=== PATIENT | female | born 1980 | race Caucasian/White ===

== ENCOUNTER 2017-07-21 15:58 | Inpatient (IN) | payer MEDICAID, SELFPAY ==
[2017-07-21 16:30] VITALS: BMI 30.5
[2017-07-21] MEDS ORDERED: FLU VACC QS2017-18 36 mo. & older 0.5 ML SYRINGE IM ONE (16:45)
[2017-07-21 18:08] LABS: Amphetamine Not Detected (NotDetected); Barbiturates Screen Not Detected (NotDetected); Benzodiazepine Screen Not Detected (NotDetected); Cocaine Metabolite Screen Not Detected (NotDetected); Medtox Control Line Valid? VALID (VALID); Medtox Reader # READER 1; Methadone Not Detected (NotDetected); Methamphetamine Not Detected (NotDetected); Opiate Screen Not Detected (NotDetected); Oxycodone Screen Not Detected (NotDetected); Phencyclidine (PCP) Not Detected (NotDetected); THC/Cannabinoid Screen Not Detected (NotDetected); Tricyclic Screen Not Detected (NotDetected)
[2017-07-21] MEDS ORDERED: Ondansetron HCl/PF 4 MG/2 ML Vial IVP PRN (19:32)
[2017-07-21] MEDS ORDERED: Lactated Ringer's 1,000 ML IV SCH (19:45)
[2017-07-21 20:22] LABS: Hemoglobin 11.6 g/dL (12.0-16.0); Mean Corpuscular HGB CONC 34.8 g/dL (32.0-36.0); Mean Corpuscular Hemoglobin 33.2 pg (27.0-31.0); Mean Corpuscular Volume 95.4 fl (81.0-99.0); Platelet Count 251 thou/uL (130-400); RBC Distribution Width 11.3 % (11.5-14.5); Red Blood Cell (RBC) Count 3.49 mill/uL (4.20-5.40); White Blood Cell (WBC) Count 9.9 thou/uL (4.8-10.8)
[2017-07-21 20:41] LABS: Amnisure Test No Membranes Rupture (No Rupture)
[2017-07-21 20:42] LABS: Bilirubin Negative (Negative); Blood, Urine Negative (Negative); Glucose, Urine (Dipstick) Negative (Negative); Leukocyte Negative (Negative); Nitrite Negative (Negative); Protein, Urine (Dipstick) Negative (Neg-Trace); Urobilinogen 0.2 mg/dL (0.2-1.0)
[2017-07-21 20:42] LABS: Amnisure Internal Control QC ACCEPTABLE (ACCEPTABLE)
[2017-07-21 20:52] LABS: Clarity Clear (Clear)
[2017-07-21 20:53] LABS: Bacteria/HPF None Seen HPF (None Seen); Hyaline Casts/LPF 0-3 HYALINE CAST LPF (0-3 Hyaline); RBC/HPF 0-3 HPF (0-3); Squamous Epithelial 0-3 HPF (0-3); WBC/HPF 0-3 HPF (0-3)
[2017-07-21 21:23] LABS: Syphilis Antibody Nonreactive (Nonreactive); Syphilis Antibody Index 0.02 S/CO (<1.00 Non-Reactive)
[2017-07-21] MEDS ORDERED: Betamet Acet/Betamet Na Ph 30 MG/5 ML VIAL ONE (22:48)
[2017-07-21] MEDS ORDERED: NIFEdipine 10 MG CAP ONE (22:49)
--- NOTE | 2017-07-21 22:49 | ULT ---
OB ULTRASOUND 07/21/17 PROVIDED CLINICAL HISTORY: No care. FINDINGS: A single live intrauterine gestation is documented in cephalic presentation with heart rate of 144 be ats per minute documented. Estimated gestational age based on today's examination is 33 weeks, 1 day. Estimated weight is 1954 +/- 289 grams. Placenta is anterior in location without evidence for previa. Cervical length appears adequate. Amniotic fluid index is 25.1. anatomic survey demonstrates a normal appearance of the lateral ventricles, cerebellum, posteri or fossa, spine, stomach, kidneys, heart, three vessel umbilical cord and bladder. The nose and lips are not visualized. The cord insertion appears grossly normal. BIOMETRY: BPD 33 weeks, 6 days Head circumference 34 weeks, 3 days Abdominal circumference 32 weeks, 4 days Femur length 30 weeks, 5 days IMPRESSION: 1. Single live intrauterine gestation as described above, with estimated gestational age based o n the ultrasound examination of 33 weeks, 1 day. Discrepancy with clinical age may reflect incorrect dates or growth restriction. The latter would be supported by the elevated head circumference to abdo linda circumference ratio. 2. AMANDEEP 25.1. POS: [facility]
[2017-07-21] MEDS ORDERED: Lidocaine 1% (PF) 30 ML VIAL SC PRN (22:55)
[2017-07-21] MEDS ORDERED: LR / Pitocin 40 units/1000 ml 1,000 ML IV PRN (22:55)
[2017-07-21] MEDS ORDERED: NIFEdipine 10 MG CAP PO SCH (23:00)
[2017-07-21] MEDS: Betamet Acet/Betamet Na Ph 30 MG/5 ML VIAL IM SCH (23:21)
[2017-07-21 23:44] LABS: HBSAB Concentration 2.58 mIU/mL; Hep B Surf AB Non-Reactive (NonReactive)
--- NOTE | 2017-07-21 23:45 | ULT ---
UMBILICAL ARTERIAL DOPPLER 07/21/17 PROVIDED CLINICAL HISTORY: Possible intrauterine growth restriction. FINDINGS: Walsh scale and color doppler sonography with spectral analysis was performed of the umbilical artery. Near the placenta, a peak systolic velocity is 45.2 cm/s and end diastolic velocity is 23.3 cm/s. The SD ratio for the placental measurement is 1.94., the pulsatility index is 0.55 and the resistance in dex is 0.48. Near the cord insertion, the peak systolic velocity is 74.3 cm/s and the end diastolic velocities 22. 4 cm/s. For the cord insertion measurement, the SD ratio is 3.32, the pulsatility index is 1.22 and t he resistance index is 0.70. IMPRESSION: The SD ratio, pulsatility index and resistance index are near the upper limits of normal (near the 95 th percentile), suggesting the possibility of uteroplacental insufficiency. POS: [facility]
[2017-07-21] MEDS: Vancomycin HCl 1 GM in Premix Bag 1 BAG IVPB SCH (23:49)
[2017-07-22] MEDS: NIFEdipine 10 MG CAP PO SCH ×5 (00:20→23:58)
--- NOTE | 2017-07-22 03:36 | HP ---
DATE OF ENCOUNTER: 07/21/2017. No care. CHIEF COMPLAINT: Abdominal pains. HISTORY OF PRESENT ILLNESS: The patient is a 37-year-old G7, P4 female with an intrauterine pregnanc y stated to be 39 weeks and 3 days by a reported due date of 07/25/2017. Patient reports that she re cently moved from [place] where she was seeing Dr. Carrillo for her care; however, after looking into getting records and speaking to the provider associated with that practice, she has no r ecords with them. Patient further reported that she had only visited them once and had gotten an ult rasound there giving a due date of 08/11/2017 to 08/10/2017. She reports that her last period was in November, though she does not have regular periods. Patient presents with complaints of abdominal pains and is here for evaluation. She denies any vaginal bleeding. She reported that she was having a li ttle bit of leakage of fluid over the last 3 days where she was having to wear a pad and was not sure if it was due to leaking urine or breaking her bag. Patient denies headache, chest pain, shortness of breath, nausea. She reports some nausea and vomiting with the . Denies diarrhea or cons tipation, any new rash, hip problems, knee problems, muscle weakness, vaginal bleeding, urinary urgen cy or frequency. PAST MEDICAL HISTORY: Patient reports she has had stomach cancer in the past and took an oral chemot herapy, but has not followed up in 4 years. In further inquiring more about her due date and how it was established, patient reports she had an ultrasound done at [facility] where they have given her due date of 07/27/2017 from a previous reported due date of 08/11/2017; however, an attempt to ob tain this ultrasound report. There was no formal ultrasound performed but her dating had been estima cliff by a bedside ultrasound from ER physician. PAST SURGICAL HISTORY: Patient reports she has had tonsillectomy and appendectomy and gallbladder re moval. SOCIAL HISTORY: Patient reports she smokes about a half pack a day. Denies drug or alcohol use. Up on further discussing the details of her left eye. ALLERGIES: PENICILLIN and TRAMADOL. She states that she gets all swollen and hives when she takes P ENICILLIN. OB LABS: Unavailable. REVIEW OF SYSTEMS: Per HPI. PHYSICAL EXAMINATION: VITAL SIGNS: Blood pressure 138/63, heart rate of 97, respiratory rate 20, satting 98% on room air, temperature 97.9. Repeat blood pressure had been in the one teens over 60s. GENERAL: She appears to be in no acute distress. She is alert and oriented, and cooperative and ple asant to interact with. HEAD: Normocephalic, atraumatic. LUNGS: Clear to auscultation bilaterally. HEART: Regular rate and rhythm. ABDOMEN: Soft and nontender. Gravid. EXTREMITIES: Nontender, nonedematous. CERVICAL: On presentation was 2.5, 15 and -3 station. heart tracing performed for threatened labor. Baseline is noted to be in the 130s with moderat e long-term variability, positive accelerations, no decelerations. She is having contractions with a lot of irritability and contractions about every 3-4 minutes. LABORATORY DATA: White count of 9.9, hemoglobin 11.6, hematocrit 33.3, and platelets of 251,000. A spot glucose was 95. A urine was negative for nitrites, leukocyte esterase, white blood cells, bacte josé luis, M-swab test was negative for evidence of rupture of membranes. Urine drug screen was negative. Syphilis IgG, IgM was nonreactive, blood type is O positive, antibody screen is negative. ult rasound performed to confirm dating demonstrates a cooper with an estimated gestational age of 33 weeks and a day and estimated weight of 1954 grams. Placenta is anterior, no evidence of p revia and AMANDEEP is 25. Of note, there is a 3-week lag between the biparietal diameter and the femur le ngth. ASSESSMENT AND PLAN: Patient is a 37-year-old female with mczgot-fx-nihbnrsx care and a large discre pancy between what her stated due date is due to reported previous ultrasounds and the ultrasound per formed today. Given the incomplete records and history, it is unclear whether the patient truly has a child with a normal for gestational age size and is 33 weeks or is in fact IUGR and term. We have ordered umbilical artery Dopplers. We will attempt again tomorrow to reach the physician's office in [place] to attempt again to find an ultrasound that is reported to have been performed; theref ore comparison and dating. In the meantime, I will move from treating the patient as a term patient with expected management from which she has changed from 2-1/2 to 4 cm during her stay to one of pret erm labor. Patient will be tocolyzed with Procardia, placed on betamethasone and vancomycin for anti biotic, GBS prophylaxis. The NICU team has been notified and patient has been placed in full admissi on. Baby is in vertex presentation.
[2017-07-22] MEDS: Lactated Ringer's 1,000 ML IV SCH ×3 (10:08→23:57)
[2017-07-22 10:26] LABS: HBSAg Index 0.17 S/CO (0-0.99); Hep B Surf Ag Non-Reactive S/CO (NonReactive)
[2017-07-22] MEDS ORDERED: Famotidine/PF 20 mg/2ml Vial SLOW IVP SCH (11:00)
--- NOTE | 2017-07-22 11:02 | PDOC.EVN ---
Event Note - Event Note Event Note: S: pt c/o heart burn that precipitates N/V. She still c/o pressure in the pelvis but denies ctx. Overall she feels better than last PM when she came in O: AVSS NAD Resp unlabored OB. FHT Cat I this AM, toco quiet to irritable Laboratory Last Values WBC 9.9 thou/uL (4.8-10.8) 07/21/17 20:00 RBC 3.49 mill/uL (4.20-5.40) L 07/21/17 20:00 Hgb 11.6 g/dL (12.0-16.0) L 07/21/17 20:00 Hct 33.3 % (36.0-47.0) L 07/21/17 20:00 MCV 95.4 fl (81.0-99.0) 07/21/17 20:00 MCH 33.2 pg (27.0-31.0) H 07/21/17 20:00 MCHC 34.8 g/dL (32.0-36.0) 07/21/17 20:00 RDW 11.3 % (11.5-14.5) L 07/21/17 20:00 Plt Count 251 thou/uL (130-400) 07/21/17 20:00 MPV 7.0 fL (7.4-10.4) L 07/21/17 20:00 POC Glucose 95 mg/dL (70-110) 07/21/17 21:01 Urine Color Yellow (Yellow) 07/21/17: Urine Clarity Clear (Clear) 07/21/17 17: Urine pH 7.0 (5.0-9.0) 07/21/17 17: Ur Specific Sandy 1.020 (1.005-1.030) 07/21/17 17: Urine Protein Negative mg/dL (Neg-Trace) 07/21/17 17: Urine Glucose (UA) Negative mg/dL (Negative) 07/21/17 17: Urine Ketones Negative mg/dL (Negative) 07/21/17: Urine Blood Negative (Negative) 07/21/17 17: Urine Nitrite Negative (Negative) 07/21/17 17: Urine Bilirubin Negative (Negative) 07/21/17 17:29 Urine Urobilinogen 0.2 mg/dL (0.2-1.0) 07/21/17 17:29 Ur Leukocyte Esterase Negative (Negative) 07/21/17 17:29 Urine RBC 0-3 HPF (0-3) 07/21/17 17:29 Urine WBC 0-3 HPF (0-3) 07/21/17 17:29 Ur Squamous Epith Cells 0-3 HPF (0-3) 07/21/17 17:29 Urine Bacteria None Seen HPF (None Seen) 07/21/17 17:29 Hyaline Casts 0-3 HYALINE CAST LPF (0-3 Hyaline) 07/21/17 17:29 Amnio Swab Test No Membranes Rupture (No Rupture) 07/21/17 20:20 Urine Opiates Screen Not Detected (NotDetected) 07/21/17 17:29 Ur Oxycodone Screen Not Detected (NotDetected) 07/21/17 17:29 Urine Methadone Screen Not Detected (NotDetected) 07/21/17 17:29 Ur Propoxyphene Screen Not Detected (NotDetected) 07/21/17 17:29 Ur Barbiturates Screen Not Detected (NotDetected) 07/21/17 17:29 Ur Tricyclics Screen Not Detected (NotDetected) 07/21/17 17:29 Ur Phencyclidine Scrn Not Detected (NotDetected) 07/21/17 17:29 Ur Amphetamines Screen Not Detected (NotDetected) 07/21/17 17:29 U Methamphetamines Scrn Not Detected (NotDetected) 07/21/17 17:29 U Benzodiazepines Scrn Not Detected (NotDetected) 07/21/17 17:29 U Cocaine Metab Screen Not Detected (NotDetected) 07/21/17 17:29 U Cannabinoids Screen Not Detected (NotDetected) 07/21/17 17:29 Drug Screen Comment () 07/21/17 17:29 Syphilis IgG/IgM Ab Nonreactive (Nonreactive) 07/21/17 20:00 Hep Bs Antibody Non-Reactive (NonReactive) 07/21/17 20:00 Hep Bs Antibody Index 2.58 mIU/mL 07/21/17 20:00 Blood Type O POSITIVE 07/21/17 20:00 Antibody Screen NEGATIVE 07/21/17 20:00 A/P: 37 yo * unsure datin weeks by stated EDC, 32-33 weeks by irreg LMP and sono here last night * ctx/labor: Arrested at 4 cm. * Betamethasone s/p dose 1 of 2, and nifedipine tocolysis * possible asymetric IUGR, borderline dopplers. * Twice daily NST, twice weekly BPP, assess for interval growth in 3-4 weeks * AMA * tobacco use in * ltd care in [facility] + 1 ER visit with [facility] in [place]. Release of record form sent to [facility] clinic but Dr. Gonzalez spoke to clinic doctor and records not available. No Sono report from [facility] visit earlier this month. * Hep B SAg ordered * GBS culture pending, currently on Vancomycin (PCN Allergic with anaphylaxis)
[2017-07-22] MEDS: Vancomycin HCl 1 GM in Premix Bag 1 BAG IVPB SCH ×2 (12:01→23:57)
--- NOTE | 2017-07-22 13:12 | ULT ---
BIOPHYSICAL PROFILE UMBILICAL ARTERIAL DOPPLER: Date: 07/22/17 PROVIDED CLINICAL HISTORY: Growth restriction. FINDINGS: Tone: 2/2 Breathin/2 Movement: 2/2 Amniotic Fluid: 2/2 Total: 8 Color Doppler and spectral analysis was performed of the umbilical artery at the placenta, mid cord, and cord insertion. At the placenta, peak systolic velocity is 30.1 cm/sec and end-diastolic velocity is 12.5 cm/sec with a corresponding SD ratio of 2.41. At the mid cord, peak systolic velocity is 32.6 cm/sec and end-diastolic velocity is 10.3 cm/sec with a corresponding SD ratio of 3.17. At the cord insertion, peak systolic velocity is 44.8 cm/sec and end-diastolic velocity is 19.4 cm/se c with a corresponding SD ratio of 2.30. heart rate is 127 beats/minute. lie is variable. AMANDEEP is calculated as 25.7. IMPRESSION: 1. Normal biophysical profile. 2. SD ratio in the mid umbilical artery approaches the upper limits of normal. 3. Normal AMANDEEP. POS: [facility]
[2017-07-22] MEDS: Ondansetron HCl/PF 4 MG/2 ML Vial IVP PRN (13:49)
[2017-07-22] MEDS: Betamet Acet/Betamet Na Ph 30 MG/5 ML VIAL IM SCH (23:58)
[2017-07-23] MEDS: NIFEdipine 10 MG CAP PO SCH (06:43)
[2017-07-23] MEDS: Ondansetron HCl/PF 4 MG/2 ML Vial IVP PRN (09:10)
[2017-07-23] MEDS ORDERED: guaiFENesin/Dextromethorphan 10 ML UDCUP PO PRN (09:53)
[2017-07-23] MEDS ORDERED: Albuterol Sulfate 1.25 MG/3 ML NEB NEB SCH (10:00)
[2017-07-23] MEDS: Famotidine/PF 20 mg/2ml Vial SLOW IVP SCH (10:08)
[2017-07-23] MEDS: Lactated Ringer's 1,000 ML IV SCH ×2 (10:13→17:48)
--- NOTE | 2017-07-23 15:34 | PRG ---
DATE OF SERVICE: 07/23/2017 SUBJECTIVE: The patient now is hospital day #3, admitted with an intrauterine , estimated at 33 weeks by 33-week ultrasound in labor. There is some confusion on her established due date as they had on reported a due date of 07/27/2017. Given the patient's lack of care, we are unable to establish or confirm the reported dating and have treated this as a labor at 33 weeks. Her labor has been arrested at 4 cm dilation and is now status post steroid administration and will be 48 hours this evening, with polyhydramnios at 25 cm of water and otherwise has been reassuring. The patient reports today that she is without contractions. Tolerating p.o., and otherwise has no complaints. OBJECTIVE: VITAL SIGNS: Today, blood pressure 129/60, heart rate is 77, respiratory rate of 18 and temperature 98.8. GENERAL: She appears to be in no acute distress. She is alert and oriented, and cooperative and pleasant to interact with. The patient has reported that her mother has been unable to find the paperwork documenting her clinic visit from last February where she reports she had an ultrasound dating her to 08/11. The patient is currently without care outside the hospital and is uninsured. We will attempt to get her set up with the Clinic and once discharged from the home will need weekly visits with weekly BPPs until we can confirm that the baby is not growth restricted. heart tracing: This morning's NST shows a baseline in the 130s with moderate long-term variability, positive accelerations, no decelerations, no contractions. ASSESSMENT AND PLAN: The patient is a 37-year-old G7, P4 female with an intrauterine , estimated at 33 weeks and 5 days based 33-week ultrasound. The patient is status post steroids is now antibiotics and cervical tocolytics have been discontinued today. We have put a consultation for case management to assist and establishing eligibility for Medicaid and will attempt to get her set up to be seen at the Clinic. PEPE
[2017-07-23] MEDS: Guaifenesin DM 100-10/5 ML UDCUP PO PRN (17:48)
[2017-07-24] MEDS: Guaifenesin DM 100-10/5 ML UDCUP PO PRN (09:24)
--- NOTE | 2017-07-24 10:12 | PDOC.LDPN ---
Labor & Delivery Progress Note - Objective Vital signs reviewed and normal: yes General: NAD FHT: category 2 - Assessment (1) Third trimester fetus Code(s): Z34.93 - ENCNTR FOR SUPRVSN OF NORMAL PREG, UNSP, THIRD TRIMESTER Current Visit: Yes Status: Acute Plan: continue plan of care (Patient is here with poor gestational criteria. Possibly 39 weeks by dates but no record of dating. Here, EGA 33 weeks (IUGR?). She is a with some limited outside PNC. NST this am has no deceks but min variability. I have requested a BPP to gather more information.)
[2017-07-24] MEDS: Lactated Ringer's 1,000 ML IV SCH (10:30)
[2017-07-24] MEDS: Famotidine/PF 20 mg/2ml Vial SLOW IVP SCH (10:31)
--- NOTE | 2017-07-24 10:38 | PDOC.EVN ---
Event Note - Event Note Event Note: BPP now 02/01, cephalic. Patient desires discharged home. We are unable to get any other information from [place] where she states she had care. As no immediate need for delivery, we may discahrge home this afternoon.
--- NOTE | 2017-07-24 11:07 | PDOC.EVN ---
Event Note - Event Note Event Note: DISCHARGE NOTE: Summary: Patient was admitted 07/21/2017 as a with unsure gestational dating. She is a at 33 weeks by ultrasound this admission, but 39 weeks by her dates. BPP done this AM (07/24) was 8/8 (8/10 for NST). No decels on NST. She has outpatient follow up this week with the [facility]. As there is no acute need for intervention at this time, with unsure dates, we will plan to repeat a sono in 2-3 weeks as an outpatient. Admit: 07/21/17 Discharge: 07/24/17 Diagnosis: Third rimester Poor gestational criteria Reassuring antepartum surveillance
--- NOTE | 2017-07-24 11:27 | ULT ---
ULTRASOUND BIOPHYSICAL PROFILE: Date: 07/24/17 HISTORY: Follow-up biophysical profile. Intrauterine growth retardation. No care. COMPARISON: Biophysical profile dated 07/22/17. FINDINGS: heart rate documented at 155 beats/minute. Amniotic fluid index of 22 cm. The biophysical profile score is 8/8. IMPRESSION: 1. Biophysical profile score of 8/8. 2. Mild elevated amniotic fluid index of nearly 23 cm. POS: [facility]
[2017-07-24 11:37] VITALS: BP 124/67; TEMP 98.3
== END 2017-07-24 11:50 | disposition home health service (06) | DRG 778 ==
LOC: L&D/OP 15:58 → L&D 22:56
PROVIDERS: ADMIT Obstetrics & Gynecology; ATTEND Obstetrics & Gynecology
DX: O60.03 Preterm labor without delivery, third trimester (principal); F17.210 Nicotine dependence, cigarettes, uncomplicated; Z3A.33 33 weeks gestation of pregnancy; O99.333 Smoking (tobacco) complicating pregnancy, third trimester; O09.33 Supervision of pregnancy with insufficient antenatal care, third trimester; O40.3XX0 Polyhydramnios, third trimester, not applicable or unspecified; O09.523 Supervision of elderly multigravida, third trimester
CPT/HCPCS: 36415; 36416; 76805; 76815; 76819; 80306; 81001; 82950; 84112; 85027; 86706; 86762; 86780; 86850; 86900; 86901; 87081; 87340; 93976; 94640; 96365; 96366; 99285; J0702; J2001; J2405; J3370; S0028

== ENCOUNTER 2017-07-25 20:52 | Inpatient (IN) | payer MEDICAID, SELFPAY ==
[2017-07-25 21:34] VITALS: BMI 30.5
[2017-07-25] MEDS ORDERED: Diphenoxylate HCl/Atropine Tablet PO PRN (21:34)
[2017-07-25] MEDS ORDERED: Lactated Ringer's 1,000 ML IV SCH ×2 (21:34)
[2017-07-25] MEDS ORDERED: Lidocaine 1% (PF) 30 ML VIAL SC PRN (21:34)
[2017-07-25] MEDS ORDERED: LR / Pitocin 40 units/1000 ml 1,000 ML IV PRN (21:34)
[2017-07-25] MEDS ORDERED: Ibuprofen 800 MG TAB PO PRN (21:34)
[2017-07-25] MEDS ORDERED: Promethazine HCl 25 MG/ML VIAL IM PRN (21:34)
[2017-07-25] MEDS ORDERED: Ondansetron HCl/PF 4 MG/2 ML Vial IVP PRN (21:34)
[2017-07-25] MEDS ORDERED: Carboprost 250 MCG/ML AMP IM PRN (21:34)
[2017-07-25] MEDS ORDERED: Lidocaine 1% (PF) 30 ML VIAL ONE (21:38)
[2017-07-25] MEDS ORDERED: LR / Pitocin 40 units/1000 ml 1,000 ML ONE (21:38)
[2017-07-25] MEDS ORDERED: Oxytocin 10 UNITS/ML VIAL ONE (21:39)
[2017-07-25 22:22] LABS: Mean Corpuscular HGB CONC 34.3 g/dL (32.0-36.0); Mean Corpuscular Hemoglobin 32.8 pg (27.0-31.0); Mean Corpuscular Volume 95.8 fl (81.0-99.0); Mean Platelet Volume 6.8 fL (7.4-10.4); Platelet Count 287 thou/uL (130-400); RBC Distribution Width 11.6 % (11.5-14.5); Red Blood Cell (RBC) Count 3.65 mill/uL (4.20-5.40); White Blood Cell (WBC) Count 16.1 thou/uL (4.8-10.8)
[2017-07-25] MEDS ORDERED: Preparation H Ointment 28 GM TUBE PR PRN (22:36)
[2017-07-25] MEDS ORDERED: Lanolin Ointment 7 GM TUBE TOP PRN (22:36)
[2017-07-25] MEDS ORDERED: Zolpidem Tartrate 5 MG TAB PO PRN (22:36)
[2017-07-25] MEDS ORDERED: diphenhydrAMINE 25 MG CAP PO PRN (22:36)
[2017-07-25] MEDS ORDERED: Adacel (T-DAP) 0.5 ML VIAL IM ONE (22:36)
[2017-07-25] MEDS ORDERED: Benzocaine/Menthol 20-0.5% 60 ML CAN TOP PRN (22:36)
[2017-07-25] MEDS ORDERED: Bisacodyl 10 MG SUPP PR PRN (22:36)
[2017-07-25] MEDS ORDERED: Milk Of Magnesia 30 ML UDCUP PO PRN (22:36)
[2017-07-25] MEDS ORDERED: LR / Pitocin 40 units/1000 ml 1,000 ML IV SCH (22:45)
[2017-07-25] MEDS: Ibuprofen 800 MG TAB PO SCH (22:57)
--- NOTE | 2017-07-25 23:41 | HP ---
DATE OF ADMISSION: 07/25/2017 TIME OF ADMISSION: 2114 PRESENTING COMPLAINT: Contractions, active labor approximately 33-34 weeks' gestation. HISTORY OF PRESENT ILLNESS: Ms. Villagran is a 37-year-old 8, para 4, AB 3 at approximately 33-3 4 weeks gestation by poor criteria, who was admitted last week with contractions and cervical change. She received antepartum betamethasone and was discharged home yesterday after no cervical c hange. She reports onset of contractions this evening. Denies rupture of membranes, reports an acti ve fetus. OB AND RETORT KILN BURNER HISTORY: SABs and SVDs, hepatitis B negative, RPR negative, rubella nonimmune, group B st rep negative on culture on the , O positive, HIV not done. No 50 gram, no genetic testing. PAST MEDICAL HISTORY: Patient has a nebulous past medical history of a possible stomach cancer that was treated with oral therapy. It sounds like this is most likely H. pylori infection. PAST SURGICAL HISTORY: Tonsillectomy, cholecystectomy, and appendectomy. SOCIAL HISTORY: One pack per day. Denies alcohol or drug abuse. UDS negative on previous admission . ALLERGIES: PENICILLIN and TRAMADOL. The patient reports she has hives with PENICILLIN. MEDICATIONS: None. FAMILY HISTORY/REVIEW OF SYSTEMS: Noncontributory. PHYSICAL EXAMINATION: GENERAL: White female in moderate distress. VITAL SIGNS: Blood pressure 135/85, heart rate 97, temperature 96, pulse 85. HEENT: Within normal limits. LUNGS: Clear to auscultation bilaterally. HEART: Regular rhythm. ABDOMEN: Soft, nontender with palpable contractions. Fundal height is 33 cm. FHTs are 130s to 140 s. PELVIC: Vulva without lesions. Vagina, slight discharge. Cervix, the patient has a bulging bag, ce phalic presentation, 8 complete, -1 station. EXTREMITIES: Without clubbing, cyanosis, or edema. heart rate tracing reveals a baseline of 1 30s to 140s with early and variable decelerations, no evidence of late decelerations, category 2 feta l heart rate tracing. IMPRESSION: labor at approximately at 33-34 weeks gestation with poor antepartum care that w as insufficient in nature, tobacco abuse in , grand multiparity elderly grand multiparous pa tient in active labor. PLAN: Admission, vancomycin for group B strep prophylaxis, neonatology consult, anticipate spontaneo us vaginal delivery.
[2017-07-26] MEDS ORDERED: Ketorolac Tromethamine 30 MG/ML VIAL IVP SCH (01:00)
[2017-07-26] MEDS: Ondansetron HCl/PF 4 MG/2 ML Vial IVP PRN ×2 (01:41→10:21)
[2017-07-26 02:12] LABS: HIV (1/2) Antibody/Antigen Non-Reactive (NonReactive); HIV 1/2 INDEX 0.08 S/CO (<1.00)
[2017-07-26] MEDS: Ibuprofen 800 MG TAB PO SCH ×3 (05:32→18:05)
--- NOTE | 2017-07-26 06:09 | OP ---
DATE OF SERVICE: 07/25/2017 TIME OF DICTATION: 2230 hours. I was called to the room to present for spontaneous vaginal delivery as the patient felt the need to push at approximately 2208 hours, I presented and the patient's perineum was prepped and draped in the usual manner, approximately 2214 hours with bulging membrane. Immediately upon amniotomy, copious yellow foul smelling amniotic fluid was noted. With one push, the patient got the fetus to the perineum and delivered over an intact perineum at 2216 hours. The cord was immediately clamped and cut and the was handed off to Dr. Cannon and the Neonatology team for care and resuscitation. Please see the resuscitation record. Weight and Apgars are pending. Cord blood sample was obtained. The placenta was delivered and cultured both maternal and side with the same swab. It was sent for pathologic analysis. The uterus was firm. No lacerations were noted. Estimated blood loss was 250 and counts were correct. The patient was to be entered into routine care. PEPE
--- NOTE | 2017-07-26 07:41 | PDOC.PP ---
Post Progress Note Post Day #: 1 PO intake tolerated: yes Flatus: yes Ambulation: yes Vital Signs (12 hours) Temp Pulse Resp BP 07/26/17 04:00 97.7 F 65 16 115/60 07/26/17 01:40 76 20 130/86 07/26/17 00:40 98.6 F 69 16 119/64 07/25/17 23:09 98.4 F 81 18 141/69 H 07/25/17 21:46 98.3 F 96 22 H 132/76 07/25/17 21:31 98.0 F 96 18 132/76 Weight Weight 195 lb - Physical Examination General: NAD Cardiovascular: no m/r/g, RRR Respiratory: clear to auscultation bilaterally Abdominal: + bowel sounds, lochia Extremities: negative homans (B) Neurological: no gross focal deficits Psychiatric: A&Ox3, normal affect Result Diagrams: 07/25/17 22:12 (1) Chorioamnionitis in third trimester Code(s): O41.1230 - CHORIOAMNIONITIS, THIRD TRIMESTER, NOT APPLICABLE OR UNSP Status: Resolved Qualifiers: Fetus number: single or unspecified fetus Qualified Code(s): O41.1230 - Chorioamnionitis, third trimester, not applicable or unspecified - Assessment/Plan doing well. placenta cx pending. baby in nicu. anticipate dc at 48-72 hr post if no sign of endometritis
[2017-07-26] MEDS: Docusate Calcium (SURFAK) 240 MG CAP PO SCH ×2 (08:37→22:57)
[2017-07-26] MEDS: Prenatal Vitamin 1 TAB PO SCH (08:37)
[2017-07-26] MEDS: Ferrous Sulfate 325 MG TAB PO SCH ×2 (08:39→17:57)
[2017-07-26] MEDS ORDERED: Vancomycin HCl 1 GM in Premix Bag 1 BAG IVPB SCH (09:00)
[2017-07-26] MEDS ORDERED: Prenatal Vitamin 1 TAB PO SCH (09:00)
[2017-07-26] MEDS ORDERED: Cyclobenzaprine 10 MG TAB PO SCH (11:00)
[2017-07-26 11:10] LABS: Bilirubin Negative (Negative); Blood, Urine Large (Negative); Clarity Cloudy (Clear); Glucose, Urine (Dipstick) Negative (Negative); Leukocyte Moderate (Negative); Nitrite Negative (Negative); Protein, Urine (Dipstick) 30 mg/dL (Neg-Trace)
[2017-07-26 11:18] LABS: RBC/HPF GREATER THAN 50-TNTC HPF (0-3)
[2017-07-26 11:19] LABS: Bacteria/HPF None Seen HPF (None Seen); Hyaline Casts/LPF NONE SEEN LPF (0-3 Hyaline); WBC/HPF 21-50 HPF (0-3)
[2017-07-27] MEDS: Ibuprofen 800 MG TAB PO SCH (01:02)
[2017-07-27 08:45] VITALS: BP 111/74; TEMP 97.9
[2017-07-27] MEDS: Docusate Calcium (SURFAK) 240 MG CAP PO SCH (11:41)
[2017-07-27] MEDS: Ferrous Sulfate 325 MG TAB PO SCH (11:42)
[2017-07-27] MEDS: Prenatal Vitamin 1 TAB PO SCH (11:42)
--- NOTE | 2017-07-27 13:08 | DIS ---
DATE OF ENCOUNTER: 07/27/2017 ADMITTING DIAGNOSIS: labor at 33-34 weeks. DISCHARGE DIAGNOSIS: Chorioamnionitis. CONSULTATIONS: Neonatology. PROCEDURE: spontaneous vaginal delivery. HOSPITAL COURSE: Ms. Jennifer Villagran is a 37-year-old multiparous female who presented in labo r at approximately 34 weeks and subsequently delivered spontaneously a female with a diagnosis of chorioamnionitis based on the foul smelling nature of amniotic fluid. Mother had just been admit cliff a few days prior for labor and had been given steroids and antibiotic treatment over a co uple days and after patient showed arrest for more than 24 hours, the patient had been discharged nica . Once she delivered she was transferred to for routine care and was started on Levaquin for concerns of risk of endometritis as well as a urinary tract infection. The patient is now postp artum day #2. She has remained afebrile throughout her stay. Today she is tolerating p.o. well, amb ulating, reporting scanty lochia and having excellent pain control. The patient has expressed a deep appreciation for the care for her and her baby at this hospital. The patient had arrangements made for her to stay at [facility] for some period of time while the baby is in the NICU. The patient is being discharged to the [facility] on ibuprofen p.r.n. for pain. She is intere sted in discussing with a provider sterilization. I have counseled her that she will need to follow up in the period with someone that can assist her as soon as possible. Patient has expres sed understanding. She has been given instructions to seek medical attention should she experience i ncreasing pain, fever or bleeding. The patient will be given 1 more dose of Levaquin just prior to d ischarge.
== END 2017-07-27 14:25 | disposition home or self-care (01) | DRG 775 ==
LOC: L&D/OP 20:52 → L&D 21:33 → 3SW 07-26 00:29
PROVIDERS: ADMIT Obstetrics & Gynecology; ATTEND Obstetrics & Gynecology
PROC: 10E0XZZ Delivery of Products of Conception, External Approach (ICD-10-PCS; principal; 2017-07-25)
PROC: 10907ZC Drainage of Amniotic Fluid, Therapeutic from Products of Conception, Via Natural or Artificial Opening (ICD-10-PCS; 2017-07-25)
DX: O60.14X0 Preterm labor third trimester with preterm delivery third trimester, not applicable or unspecified (principal); O41.1230 Chorioamnionitis, third trimester, not applicable or unspecified; F17.210 Nicotine dependence, cigarettes, uncomplicated; O99.334 Smoking (tobacco) complicating childbirth; Z37.0 Single live birth; Z23 Encounter for immunization; Z3A.34 34 weeks gestation of pregnancy
CPT/HCPCS: 36415; 76815; 81001; 85027; 87070; 87077; 87086; 87205; 87389; 88307; 90715; 99285; J1885; J1956; J2001; J2405; J2590; J3370; J3490

== ENCOUNTER 2019-07-27 10:43 | Inpatient (IN) | payer MEDICAID, OTHER ==
[2019-07-27] MEDS ORDERED: Ondansetron PF 4 MG/2 ML Vial IVP PRN ×2 (10:57→14:06)
[2019-07-27] MEDS ORDERED: NS / Oxytocin 40 units/1000ml 1,000 ML IV PRN (10:57)
[2019-07-27] MEDS ORDERED: Lidocaine 1% (PF) 30 ML VIAL SC PRN (10:57)
[2019-07-27] MEDS ORDERED: hydrALAZINE 20 MG/ML VIAL SLOW IVP PRN ×2 (10:57→14:06)
[2019-07-27] MEDS ORDERED: Promethazine HCl 25 MG/ML VIAL IM PRN (10:57)
[2019-07-27] MEDS ORDERED: CEFAZOLIN 1 GM in Sodium Chloride 0.9% 100 ML IVPB SCH (11:00)
[2019-07-27 11:20] VITALS: BMI 29.7
[2019-07-27] MEDS ORDERED: Butorphanol Tartrate 1 MG/ML VIAL ONE (11:27)
[2019-07-27 11:51] LABS: Hemoglobin 11.5 g/dL (12.0-16.0); Mean Corpuscular HGB CONC 32.8 g/dL (32.0-36.0); Mean Corpuscular Hemoglobin 28.4 pg (27.0-31.0); Mean Corpuscular Volume 86.6 fL (78.0-98.0); Mean Platelet Volume 8.4 fL (7.4-10.4); Platelet Count 299 thou/uL (130-400); RBC Distribution Width 12.6 % (11.5-14.5); Red Blood Cell (RBC) Count 4.03 mill/uL (4.20-5.40); White Blood Cell (WBC) Count 14.6 thou/uL (4.8-10.8)
[2019-07-27 12:21] LABS: ALT (SGPT) 13 U/L (8-55); AST (SGOT) 16 U/L (5-34); Albumin 3.3 g/dL (3.5-5.0); Alkaline Phosphatase 233 U/L (40-110); Anion Gap 12 mmol/L (10-20); BUN (Urea Nitrogen) 9 mg/dL (7.0-18.7); Bilirubin, Total 0.4 mg/dL (0.2-1.2); Calc. Creatinine Clearance 143 mL/min (70-130); Carbon Dioxide 23 mmol/L (22-29); Chloride 105 mmol/L (98-107); Estimated GFR-MDRD 90; Glucose 86 mg/dL (70-105); Potassium 4.6 mmol/L (3.5-5.1); Protein, Total 6.3 g/dL (6.0-8.3); Sodium 135 mmol/L (136-145)
[2019-07-27 12:23] LABS: Syphilis Antibody Nonreactive (Nonreactive); Syphilis Antibody Index 0.02 S/CO (<1.00 Non-Reactive)
[2019-07-27] MEDS ORDERED: Methylergonovine 0.2 MG/ML VIAL ONE (12:24)
[2019-07-27] MEDS ORDERED: Carboprost 250 MCG/ML AMP ONE (12:24)
[2019-07-27 13:04] LABS: HBSAB Concentration 645.43 mIU/mL; Hep B Surf AB Reactive (NonReactive)
--- NOTE | 2019-07-27 13:12 | PDOC.OPDEL ---
OB Operative/Delivery Note Delivery Dr/Surgeon: Mark Santiago Assist: Attending: Dr. Johansen Pre-Delivery Diagnosis: active labor Procedure/Post Delivery Dx: spontaneous vaginal delivery Weeks gestation: 39 Anesthesia: none - Findings A Sex: female - 1 min: 9 - 5 min: 9 - Additional Findings/Plan Placenta delivered: spontaneous Repaired Obstetrical Laceration: none Compilations/Other Findings: Delivering Physician : Mark Santiago Attending: Eleno Procedure: Spontaneous Vaginal Delivery Anesthesia: none Pre-op Diagnosis: 1. Term intrauterine in labor 2. Hx of GBS + 3. No care 4. Hx of drug use 5. AMA Post-op Diagnosis: 1. Term intrauterine , delivered 2. 2. Hx of GBS + 3. No care 4. Hx of drug use 5. AMA Indications: A 39 y/o female presents in active labor. Delivery Note: This is 39yo F @39ks who delivered a viable F infant at ~ 1240 on 07/27/2019. Following an uneventful antepartum course, a vigorous female was delivered over an intact perineum in the occipitoanterior position. Anterior shoulder and then remainder of the body delivered. No nuchal cord. The head was held down and mouth and nares were bulb suctioned. Cord clamped and cut and cord blood collected. Placenta delivered intact (in the Estevez presentation) with a 3 vessel cord noted. Fundal massage was performed and the fundus was firm. The cervix and vagina were inspected and found to be free of lacerations. went to nursery in good condition for routine care. Apgars were 9/9 at 1 & 5 minutes, respectively. Patient tolerated delivery well and went to after routine recovery/care. Addendum - Attending - Attending Attestation Date/Time: 08/01/19 1937 I personally evaluated the patient and discussed the management with Dr. Flores. Uncomplicated as detailed above. I agree with the History, Examination, Assessment and Plan documented above.
[2019-07-27] MEDS ORDERED: Adacel (T-DAP) 0.5 ML SYRINGE IM ONE (14:06)
[2019-07-27] MEDS ORDERED: Preparation H Ointment 28 GM TUBE PR PRN (14:06)
[2019-07-27] MEDS: Misoprostol 200 MCG TAB ONE (14:06)
[2019-07-27] MEDS ORDERED: Lanolin Ointment 7 GM TUBE TOP PRN (14:06)
[2019-07-27] MEDS ORDERED: diphenhydrAMINE 25 MG CAP PO PRN (14:06)
[2019-07-27] MEDS ORDERED: Benzocaine-Menthol 82.5 ML CAN TOP PRN (14:06)
[2019-07-27] MEDS ORDERED: Bisacodyl 10 MG SUPP PR PRN (14:06)
[2019-07-27] MEDS ORDERED: NS / Oxytocin 40 units/1000ml 1,000 ML IV SCH (14:06)
[2019-07-27] MEDS ORDERED: Milk Of Magnesia 30 ML UDCUP PO PRN (14:06)
[2019-07-27] MEDS: Ibuprofen 800 MG TAB PO SCH ×2 (14:09→21:47)
[2019-07-27 14:46] LABS: Bacteria/HPF None Seen HPF (None Seen); Bilirubin Negative (Negative); Blood, Urine Negative (Negative); Clarity Clear (Clear); Glucose, Urine (Dipstick) Normal (Negative); Leukocyte Negative Leu/uL (Negative); Nitrite Negative (Negative); Protein, Urine (Dipstick) 10 mg/dL (Neg-Trace); RBC/HPF 0-3 HPF (0-3); Squamous Epithelial 0-3 HPF (0-3); Urobilinogen Normal mg/dL (Less than 2); WBC/HPF 0-3 HPF (0-3)
[2019-07-27 14:59] LABS: Amphetamine Detected (NotDetected); Barbiturates Screen Not Detected (NotDetected); Benzodiazepine Screen Not Detected (NotDetected); Cocaine Metabolite Screen Not Detected (NotDetected); Medtox Control Line Valid? VALID (VALID); Medtox Reader # READER 4; Methadone Not Detected (NotDetected); Methamphetamine Detected (NotDetected); Opiate Screen Not Detected (NotDetected); Oxycodone Screen Not Detected (NotDetected); Phencyclidine (PCP) Not Detected (NotDetected); THC/Cannabinoid Screen Detected (NotDetected); Tricyclic Screen Not Detected (NotDetected)
[2019-07-27] MEDS ORDERED: Acetaminophen/Codeine 30-300mg Tablet PO PRN (15:27)
[2019-07-27 16:14] LABS: HBSAg Index 0.43 S/CO (0-0.99); Hep B Surf Ag Non-Reactive S/CO (NonReactive)
[2019-07-27] MEDS: Ferrous Sulfate 325 MG TAB PO SCH (17:46)
[2019-07-27] MEDS: Docusate Calcium (SURFAK) 240 MG CAP PO SCH (21:47)
--- NOTE | 2019-07-28 01:03 | PDOC.PP ---
Post Progress Note Post Day #: PPD1 Subjective: Resting, no complaints. PO intake tolerated: yes Flatus: yes Ambulation: yes Vital Signs (12 hours) Temp Pulse Resp BP Pulse Ox 07/27/19 19:24 99.0 F 93 16 142/84 H 98 07/27/19 17:11 98.0 F 87 12 151/83 H 98 07/27/19 16:23 96 07/27/19 16:20 98.5 F 87 22 H 142/87 H 07/27/19 15:10 98.5 F 90 18 157/86 H Weight Weight 86.183 kg - Physical Examination General: NAD Respiratory: non-labored breathing Neurological: no gross focal deficits Psychiatric: normal affect Result Diagrams: 07/27/19 11:35 07/27/19 11:35 Additional Labs: Post Labs Blood Type O POSITIVE 07/27/19 11:35 Hep Bs Antigen Non-Reactive S/CO (NonReactive) 07/27/19 11:35 - Assessment/Plan Doing well s/p Case management consult pending for +UDS Routine PP care
[2019-07-28] MEDS: Ibuprofen 800 MG TAB PO SCH ×3 (05:50→21:14)
[2019-07-28 06:11] LABS: Hemoglobin 10.1 g/dL (12.0-16.0); Mean Corpuscular HGB CONC 33.6 g/dL (32.0-36.0); Mean Corpuscular Hemoglobin 29.3 pg (27.0-31.0); Mean Platelet Volume 8.2 fL (7.4-10.4); Platelet Count 269 thou/uL (130-400); RBC Distribution Width 12.6 % (11.5-14.5); Red Blood Cell (RBC) Count 3.43 mill/uL (4.20-5.40); White Blood Cell (WBC) Count 10.2 thou/uL (4.8-10.8)
[2019-07-28] MEDS: Ferrous Sulfate 325 MG TAB PO SCH ×2 (07:27→17:36)
--- NOTE | 2019-07-28 07:28 | PDOC.PP ---
Post Progress Note Post Day #: 1 Subjective: Doing well. Elevated bps during labor yesterday and overnight. Denies headaches , vision changes, swelling. PO intake tolerated: yes Flatus: yes Ambulation: yes Weight Weight 86.183 kg - Physical Examination General: NAD Cardiovascular: no m/r/g, RRR Respiratory: clear to auscultation bilaterally, non-labored breathing Neurological: no gross focal deficits Psychiatric: A&Ox3 Result Diagrams: 07/28/19 05:31 07/27/19 11:35 Additional Labs: Post Labs Blood Type O POSITIVE 07/27/19 11:35 Hep Bs Antigen Non-Reactive S/CO (NonReactive) 07/27/19 11:35 (1) Term delivered Code(s): O80 - ENCOUNTER FOR FULL-TERM UNCOMPLICATED DELIVERY Status: Acute (2) Methamphetamine abuse Code(s): F15.10 - OTHER STIMULANT ABUSE, UNCOMPLICATED Status: Acute (3) Amphetamine abuse Code(s): F15.10 - OTHER STIMULANT ABUSE, UNCOMPLICATED Status: Acute (4) Hx maternal GBS (group B streptococcus) affected , Code(s): O09.299 - SUPRVSN OF PREG W POOR REPRODCTV OR OBSTET HISTORY, UNSP TRI Status: Acute (5) Advanced maternal age (AMA) in Code(s): [id number] - Status: Acute (6) Elevated blood pressure affecting in third trimester, antepartum Code(s): O16.3 - UNSPECIFIED MATERNAL HYPERTENSION, THIRD TRIMESTER Status: Acute (7) No care in current Code(s): O09.30 - SUPRVSN OF PREG W INSUFFICIENT ANTENAT CARE, UNSP TRIMESTER Status: Acute (8) Continuous tobacco abuse Code(s): Z72.0 - TOBACCO USE Status: Acute - Assessment/Plan 39 yo s/p @ 39wks to a LAY f at 1240 on 07/27/19, with elevated bp during delivery and , meth/amphet abuse, no prenantal care, hx of GBS meningitis in a different child, advanced maternal age, and tobacco abuse. #sIUP, term, delivered -continue routine care #Elevated BP without diagnosis of HTN -multiple during labor and overnight after delivery -added on a urine protein/cr ratio from sample taken yesterday which showed ratio of .3 -no severe features on initial labs yesterday -however if severe range blood pressures present during , I would consider magnesium for seizure prophylaxis. #AMA #multi-drug use in -likely contributing to elevated BP #tobacco abuse #no care #hx of GBS pos with prior infant with GBS meningitis Latrice Santiago MD, PGY-3 Addendum - Attending - Attending Attestation Date/Time: 08/01/19 0906 I personally evaluated the patient and discussed the management with Dr. Flores I agree with the History, Examination, Assessment and Plan documented above.
[2019-07-28] MEDS ORDERED: FLU VACC QS2019-20(6MOS UP)/PF 60 MCG/0.5 ML SYRINGE IM ONE (09:00)
[2019-07-28] MEDS: Prenatal Vitamin 1 TAB PO SCH (10:11)
[2019-07-28] MEDS: Docusate Calcium (SURFAK) 240 MG CAP PO SCH ×2 (10:11→21:14)
[2019-07-28 11:36] LABS: Creatinine, Urine 49.76 mg/dL (47-110)
--- NOTE | 2019-07-29 03:14 | PDOC.PP ---
Post Progress Note Post Day #: 2 Subjective: Patient doing well. States her headaches have resolved. States CPS came and talked to her and her regarding placement of child. She is under the impression that infant will go home with FOB today. Lochia very minimal. PO intake tolerated: yes Flatus: yes Ambulation: yes Vital Signs (12 hours) Temp Pulse Resp BP Pulse Ox 07/28/19 17:22 98 24 H 139/82 98 07/28/19 16:30 98.7 F 99 20 153/82 H Weight Weight 86.183 kg - Physical Examination General: NAD Cardiovascular: RRR Respiratory: non-labored breathing Abdominal: + bowel sounds, lochia (minimal), no distention, appropriately TTP Fundus firm & at: below umbilicus Skin: no rash Neurological: no gross focal deficits Psychiatric: A&Ox3, normal affect Result Diagrams: 07/28/19 05:31 07/27/19 11:35 Additional Labs: Post Labs Blood Type O POSITIVE 07/27/19 11:35 Hep Bs Antigen Non-Reactive S/CO (NonReactive) 07/27/19 11:35 Rubella IgG Antibody Less than 0.90 index (Immune >0.99) L 07/27/19 11:35 (1) Advanced maternal age (AMA) in Code(s): [id number] - Status: Acute (2) Amphetamine abuse Code(s): F15.10 - OTHER STIMULANT ABUSE, UNCOMPLICATED Status: Acute (3) Elevated blood pressure affecting in third trimester, antepartum Code(s): O16.3 - UNSPECIFIED MATERNAL HYPERTENSION, THIRD TRIMESTER Status: Acute (4) Hx maternal GBS (group B streptococcus) affected , Code(s): O09.299 - SUPRVSN OF PREG W POOR REPRODCTV OR OBSTET HISTORY, UNSP TRI Status: Acute (5) Methamphetamine abuse Code(s): F15.10 - OTHER STIMULANT ABUSE, UNCOMPLICATED Status: Acute (6) No care in current Code(s): O09.30 - SUPRVSN OF PREG W INSUFFICIENT ANTENAT CARE, UNSP TRIMESTER Status: Acute (7) Term delivered Code(s): O80 - ENCOUNTER FOR FULL-TERM UNCOMPLICATED DELIVERY Status: Acute (8) Continuous tobacco abuse Code(s): Z72.0 - TOBACCO USE Status: Acute - Assessment/Plan 39 yo s/p @ 39wks to a LAY f at 1240 on 07/27/19, with elevated bp during delivery and , meth/amphet abuse, no prenantal care, hx of GBS meningitis in a different child, advanced maternal age, and tobacco abuse. sIUP, term, delivered -continue routine care -meeting PP milestones -Rh positive, Rubella non-immune (will need MMR vaccine prior to discharge - ordered) pre-E without severe features -BP high to 156/78, continue to monitor -Several BP's in upper 140's/low 150's yesterday; will start on amlodipine 5 mg as it is conveniently once a day dosing and cheaper than nifedipine -Urine protein/cr 0.3, CBC WNL, CMP WNL AMA Multi-drug use in -likely contributing to elevated BP -Amphetamine/methamphetamine and THC positive -CPS consulted and following Tobacco abuse -Encourage cessation No care -Rubella non-immune -CPS following Hx of GBS pos with prior infant with GBS meningitis -Observe for at least 48 hours -Did not receive treatment during delivery due to precipitous nature of delivery Rubella non-immune -Will need MMR vaccine prior to discharge; ordered Dispo: Stable. D/c home today.
[2019-07-29] MEDS: Ibuprofen 800 MG TAB PO SCH (08:04)
[2019-07-29 08:14] VITALS: BP 132/72; TEMP 98.4
[2019-07-29] MEDS ORDERED: Amlodipine 5 MG TAB PO SCH (09:00)
[2019-07-29] MEDS: Docusate Calcium (SURFAK) 240 MG CAP PO SCH (09:35)
[2019-07-29] MEDS: Prenatal Vitamin 1 TAB PO SCH (09:36)
[2019-07-29] MEDS: Ferrous Sulfate 325 MG TAB PO SCH (09:38)
[2019-07-29] MEDS ORDERED: FLU VACC QS2019-20(6MOS UP)/PF 60 MCG/0.5 ML SYRINGE IM ONE (10:30)
[2019-07-29] MEDS ORDERED: Prevnar 13-Val Conj/PF 0.5 ML SYRINGE IM ONE (10:30)
== END 2019-07-29 10:45 | disposition home or self-care (01) | DRG 807 ==
LOC: L&D/OP 10:43 → L&D 11:05 → 3SW 15:13
PROVIDERS: ADMIT Obstetrics & Gynecology; ATTEND Obstetrics & Gynecology
PROC: 10E0XZZ Delivery of Products of Conception, External Approach (ICD-10-PCS; principal; 2019-07-27)
DX: O99.324 Drug use complicating childbirth (principal); Z37.0 Single live birth; O14.94 Unspecified pre-eclampsia, complicating childbirth; Z3A.39 39 weeks gestation of pregnancy; F15.10 Other stimulant abuse, uncomplicated; O99.824 Streptococcus B carrier state complicating childbirth; O99.334 Smoking (tobacco) complicating childbirth; F17.200 Nicotine dependence, unspecified, uncomplicated; R03.0 Elevated blood-pressure reading, without diagnosis of hypertension; Z71.6 Tobacco abuse counseling
CPT/HCPCS: 36415; 80053; 80306; 81001; 82570; 84156; 85027; 86706; 86762; 86780; 86850; 86900; 86901; 87340; 88307; 90471; 90686; 90715; G0008; J0595; J0690; J2210; J3490